=== PATIENT | female | born 1945 | race Caucasian/White ===

== ENCOUNTER 2017-03-21 15:47 | Emergency (ER) | payer OTHER ==
[~2017-03-21] VITALS: Ht 154.9 cm; Wt 59.0 kg
--- NOTE | ~2017-03-21 | EKG ---
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 : 1945 Requested By: Raudel Collado Order Number: [id number] MD: Jatinder Hunter Measurements Intervals [place] Rate: 57 P: 32 NM: 191 QRS: -31 QRSD: 92 T: -20 QT: 414 QTc: 403 Interpretive Statements Sinus bradycardia Inferior infarct, age indeterminate Compared to ECG 01/29/2016 20:12:04 no significant change was found Electronically Signed On 03-22-2017 15:07:59 CDT by Jatinder Hunter [email or web address] <ELECTRONICALLY SIGNED> By: Jatinder Hunter MD, [facility] 03/22/17 1507 [id number] 23 Jatinder Hunter MD, [facility] /EPI
[~2017-03-21 15:47] MED LIST: CALCIUM 500 +1 EAC6 PO; HYCET 7.5 MG-3473 ML PO; HYDROCHLOROTH12.5 M1 PO; LISINOPRIL10 MG PO; PRILOSEC40 MG PO; VITAMIN C500 M1 PO; ZOCOR 10 MG TAB10 MG PO; ZOFRAN ODT4 MG DISSOLVE
[2017-03-21] MEDS ORDERED: LISINOPRIL-HCT1 EACH PO (16:44)
[2017-03-21] MEDS ORDERED: PRED FORTE 1% EY5 M1 OPHTHALMIC (16:46)
[2017-03-21] MEDS ORDERED: KETOROLAC TROMET5 ML OPHTHALMIC (16:46)
[2017-03-21] MEDS ORDERED: TRIMETHOPRIM /P10 M1 OPHTHALMIC (16:47)
[2017-03-21] MEDS ORDERED: CIPROFLOXIN HC2.5 M1 OPHTHALMIC (16:47)
[2017-03-21 17:01] LABS: ABSOLUTE NEUTROPHILS 3.9 thou/uL (1.4-8.2); BASOPHILS 0.4 % (0.0-2.0); EOSINOPHILS 2.3 % (0.0-3.0); HEMATOCRIT 35.4 % (37.0-47.0); HEMOGLOBIN 12.1 gm/dL (12.0-15.0); LYMPHOCYTES 17.6 % (24.0-44.0); MCH 31.9 pg (26.0-34.0); MCHC 34.3 g/dL (28.0-37.0); MONOCYTES 7.3 % (1.0-8.0); PLATELET COUNT 177 thou/uL (150-400); POLYS 72.4 % (36.0-66.0); RBC 3.81 mil/uL (4.20-5.00); RDW 12.8 % (10.5-14.5); WBC 5.4 thou/uL (4.0-11.0)
[2017-03-21 17:04] LABS: MANUAL DIFF NO
[2017-03-21 17:10] LABS: ANION GAP 6 mmol/L (7-16); BUN 24 mg/dL (7-18); CHLORIDE 107 mmol/L (98-107); CO2 28 mmol/L (21-32); CREATININE 0.7 mg/dL (0.6-1.0); GLUCOSE 104 mg/dL (74-106); POTASSIUM 3.9 mmol/L (3.5-5.1); SODIUM 141 mmol/L (136-145)
[2017-03-21 17:19] LABS: TROPONIN-I < 0.04 ng/mL (<0.04-0.07)
[2017-03-21] MEDS ORDERED: NORCO 5-325 TA1 EACH PO (17:40)
== END 2017-03-21 18:00 | disposition home or self-care (01) ==
LOC: ER 15:47
PROVIDERS: Physician Assistant
DX: M75.22 Bicipital tendinitis, left shoulder (principal); I10 Essential (primary) hypertension; E78.00 Pure hypercholesterolemia, unspecified; Z85.43 Personal history of malignant neoplasm of ovary; Z90.710 Acquired absence of both cervix and uterus; Z45.2 Encounter for adjustment and management of vascular access device

== ENCOUNTER → 2017-06-25 | Outpatient (CLI) | payer OTHER ==
[~2017-06-25] MED LIST changes: +CIPROFLOXIN HC2.5 M1 OPHTHALMIC; +KETOROLAC TROMET5 ML OPHTHALMIC; +LISINOPRIL-HCT1 EACH PO; +NORCO 5-325 TA1 EACH PO; +PRED FORTE 1% EY5 M1 OPHTHALMIC; +TRIMETHOPRIM /P10 M1 OPHTHALMIC
== END ==
LOC: RAD 03:06
DX: Z12.31 Encounter for screening mammogram for malignant neoplasm of breast (principal)

== ENCOUNTER 2017-11-06 11:52 | Inpatient (IN) | payer OTHER ==
[~2017-11-06] VITALS: Ht 154.9 cm; Wt 61.2 kg
--- NOTE | ~2017-11-06 | HC ---
[facility] [place] [address] CONSULTATION Name: KWABENA SIMONS Room #: 421-P ADM IN M.R.#: [id number] Admission: 11/06/17 Attend Phys: Leann Chaudhari Discharge: Date of : 41 Report #: [id number] THIS REPORT FOR: //name// CC: Jose Chaudhari DATE OF SERVICE: 11/06/2017 ATTENDING PHYSICIAN: Leann Chaudhari M.D. REASON FOR CONSULTATION: Abdominal pain and diarrhea. HISTORY OF PRESENT ILLNESS: This is a 72-year-old female patient known to our service from previous management of previous management of a large paraesophageal hernia and incarcerated incisional ventral hernia by my practice partner, Dr. Abad Taylor. She has had difficulty with epigastric abdominal pain and multiple episodes of diarrhea around 9:00 this morning. She was seen in the Emergency Room where she underwent a CT of the abdomen and pelvis showing a possible mild diffuse colitis involving the descending and sigmoid colon. The colon proximal to the splenic flexure was mildly dilated. No other acute appearing abnormalities were seen. The patient had an elevated white blood cell count at the time of her admission. I have been asked to see her for further evaluation and treatment. She denies fever or chills. She has had nausea but no emesis. This is her third bout of diarrhea over the past 4-6 weeks. She takes antibiotics chronically, last taken sometime last month for chronic toe infections. She has taken the antibiotics monthly over the past 5 months. She denies bright red blood per rectum. Her most recent colonoscopy was last year, reportedly normal other than some small polyps. PAST MEDICAL HISTORY: Significant for ovarian cancer diagnosed in November 2012 for which she underwent a debulking operation. She also has hemorrhoids. She has also undergone hysterectomy at 30 years old and repair of her type 4 paraesophageal hernia and incarcerated incisional ventral hernia in February 2016. The patient also has a history of hypertension. HOME MEDICATIONS: Include lisinopril/hydrochlorothiazide, Zocor, vitamin C and calcium with vitamin D. ALLERGIES: No known drug allergies. FAMILY HISTORY: Significant for breast cancer in her sister and oropharyngeal cancer in her father. Her mother had what sounds like DCIS. SOCIAL HISTORY: The patient denies use of tobacco, alcohol or illicit drugs. 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 [address] [address] CONSULTATION Name: KWABENA SIMONS Room #: 421-P [facility] [place] ..#: [id number] Admission: 11/06/17 Attend Phys: Leann Chaudhari Discharge: Date of : 41 Report #: [id number] REVIEW OF SYSTEMS: As per history of present illness and in addition: GENERAL: The patient denies fever or chills. Denies unintentional weight loss. HEENT: Denies changes in taste, vision, hearing or smell. RESPIRATORY: Denies shortness of breath, COPD or asthma. CARDIOVASCULAR: Denies chest pain or palpitations. GASTROINTESTINAL: As per history of present illness. Denies bright red blood per rectum. GENITOURINARY: Denies dysuria, urgency, increased urinary frequency or hematuria. MUSCULOSKELETAL: Denies myalgia, arthralgia or arthritis. NEUROLOGICAL: Denies headaches, numbness or tingling. PSYCHIATRIC: Denies depression, anxiety or suicidal ideations. SKIN AND INTEGUMENTARY: Denies any skin lesions, rashes or moles. ENDOCRINE: Denies polydipsia, polyuria or heat or cold intolerance. HEMATOLOGIC: Denies easy bleeding, bruising or anemia. All other review of systems is negative. PHYSICAL EXAMINATION: VITAL SIGNS: Temperature 97.9, blood pressure 121/63, pulse 68, respirations 15, height 5 feet 1 inches and weight 135 pounds. GENERAL: This is a well-developed, well-nourished 72-year-old female patient, in no acute distress. HEENT: Atraumatic and normocephalic with moist mucosal membranes. Oropharynx is clear. She has no scleral icterus. NECK: Supple. No appreciable lymphadenopathy. Trachea is midline. CHEST: Clear bilaterally. No crackles or wheezes. CARDIOVASCULAR: Regular rate and rhythm. ABDOMEN: Soft, but mildly tender to palpation periumbilically favoring the epigastrium. She has no rebound or guarding. No palpable masses. No appreciable hernias. Surgical scars are well healed. GENITOURINARY: Normal external female genitalia. EXTREMITIES: No clubbing, cyanosis or edema. NEUROLOGICAL: Cranial nerves 2 through 12 grossly intact. PSYCHIATRIC: Normal mood and affect. SKIN AND INTEGUMENTARY: No acute inflammatory changes, rashes or lesions are present. LABORATORY DATA: CBC shows a white blood cell count 13.8, hemoglobin 14.4, hematocrit 43.9 and platelets 108 with 75% second segmented neutrophils and 13% bandemia. Electrolytes showed a sodium of 144, potassium 4.0, chloride 108, CO2 27, BUN 21, creatinine 0.9 and glucose 102 with normal liver function tests and a normal lipase. Urinalysis was entirely negative. Lactate was normal at 1.4. After an elevated lactate of 2.6 earlier today. RADIOLOGIC STUDIES: CT of the abdomen and pelvis findings are as noted above. The patient had mild circumferential mural thickening of the descending and [address] [place] [address] CONSULTATION Name: KWABENA SIMONS Room #: 421-P ADM IN M.R.#: [id number] Admission: 11/06/17 Attend Phys: Leann Chaudhari Discharge: Date of : 41 Report #: [id number] sigmoid colon with colonic diverticulosis. The colon proximal to the splenic flexure was mildly dilated and filled with low density fluid. This was felt to represent mild diffuse colitis involving the descending and sigmoid colon, resulting in some degree of partial colonic obstruction. The fluid within the colon was felt to represent diarrhea. There was no evidence for bowel obstruction, free intraperitoneal gas or abnormal extraluminal fluid collections. There was no inflammation in the right lower quadrant. A small lower ventral abdominal hernia was seen with a normal caliber bowel within the defect. On my review of the CT scan, there was dilated bowel near the herniated bowel. IMPRESSION AND PLAN: This is a 72-year-old female patient with a history of ovarian cancer, who has evidence for colitis on CT. She has had difficulty with several bouts of diarrhea and has taken antibiotics relatively recently. We discussed the pathophysiology and natural history of colitis including infectious or inflammatory causes and also discussed the possibility of a partial bowel or colon obstruction. The patient is currently receiving Zosyn. We discussed further workup, potential treatment alternatives, and surgical options as well. We would continue conservative treatment with IV Zosyn and we will add Flagyl. Consider a gastrointestinal consult as well. Should she show more evidence for bowel or colon obstruction, she may require decompression. The patient expressed understanding of the plan. We will follow along with serial abdominal exams as well as labs and x-rays as necessary. I sincerely appreciate the opportunity to participate in the care of this patient and we will leave further recommendations and orders in the electronic medical record as appropriate. <ELECTRONICALLY SIGNED> By: Cm Hedrick MD, FACS 11/07/17 0831 [id number] Cm Hedrick MD, FACS /nt
[2017-11-06 11:53] VITALS: BP 95/54
[2017-11-06 12:29] LABS: HEMATOCRIT 43.9 % (37.0-47.0); HEMOGLOBIN 14.4 gm/dL (12.0-15.0); MANUAL DIFF YES; MCH 31.5 pg (26.0-34.0); MCHC 32.7 g/dL (28.0-37.0); MCV 96.4 fL (80.0-100.0); PLATELET COUNT 108 thou/uL (150-400); RBC 4.56 mil/uL (4.20-5.00); RDW 13.1 % (10.5-14.5); WBC 13.8 thou/uL (4.0-11.0)
[2017-11-06 13:02] LABS: ABSOLUTE NEUTROPHILS 12.1 thou/uL (1.4-8.2); TOTAL CELL COUNT 100
[2017-11-06 13:45] LABS: CALCIUM 9.4 mg/dL (8.5-10.1); CREATININE 0.9 mg/dL (0.6-1.0)
[2017-11-06 13:51] LABS: ALBUMIN 4.1 g/dL (3.4-5.0); DIRECT BILIRUBIN 0.2 mg/dL (<0.1-0.3); TOTAL BILIRUBIN 0.7 mg/dL (<0.1-1.0); TOTAL PROTEIN 6.9 g/dL (6.4-8.2)
[2017-11-06 14:28] LABS: URINE BILIRUBIN NEGATIVE (Negative); URINE BLOOD NEGATIVE (Negative); URINE COLOR YELLOW; URINE GLUCOSE-RANDOM* NEGATIVE (Negative); URINE KETONES NEGATIVE (Negative); URINE NITRITE NEGATIVE (Negative); URINE PROTEIN (DIPSTICK) NEGATIVE (Negative); URINE UROBILINOGEN 0.2 E.U./dl (0.2-1.0)
[2017-11-06 15:25] VITALS: BP 121/63
[2017-11-06 18:35] VITALS: BP 88/59
[2017-11-06 19:17] VITALS: BP 85/51
[2017-11-07 00:26] VITALS: BP 89/43
[2017-11-07 03:24] VITALS: BP 111/49
[2017-11-07 06:41] LABS: HEMATOCRIT 30.9 % (37.0-47.0); MCH 32.1 pg (26.0-34.0); MCHC 33.8 g/dL (28.0-37.0); MCV 94.8 fL (80.0-100.0); RBC 3.26 mil/uL (4.20-5.00); WBC 3.4 thou/uL (4.0-11.0)
[2017-11-07 06:46] LABS: HEMOGLOBIN 10.5 gm/dL (12.0-15.0)
[2017-11-07 06:48] LABS: CALCIUM 8.4 mg/dL (8.5-10.1); CREATININE 0.6 mg/dL (0.6-1.0); POTASSIUM 3.7 mmol/L (3.5-5.1)
[2017-11-07 06:54] LABS: ALBUMIN 2.7 g/dL (3.4-5.0); MAGNESIUM 1.8 mg/dL (1.8-2.4); TOTAL BILIRUBIN 0.7 mg/dL (<0.1-1.0)
[2017-11-07 07:30] VITALS: BP 118/55
[2017-11-07 15:20] VITALS: BP 133/73
[2017-11-07 19:21] VITALS: BP 127/59
[2017-11-07 23:44] VITALS: BP 122/66
[2017-11-08 03:17] VITALS: BP 111/72
[2017-11-08 08:25] VITALS: BP 155/66
[2017-11-08] MEDS ORDERED: FLAGYL500 MG PO (09:31)
[2017-11-08 11:06] VITALS: BP 155/66
[2017-11-08 12:36] VITALS: BP 155/66
== END 2017-11-08 12:25 | disposition home or self-care (01) | DRG 871 ==
LOC: ER 11:52 → EROBS 14:50 → 4E 14:50
PROVIDERS: Emergency Medicine; Hospitalist
DX: A41.9 Sepsis, unspecified organism (principal); E43 Unspecified severe protein-calorie malnutrition; K52.9 Noninfective gastroenteritis and colitis, unspecified; I10 Essential (primary) hypertension; E86.9 Volume depletion, unspecified; I95.9 Hypotension, unspecified; D72.825 Bandemia; E78.00 Pure hypercholesterolemia, unspecified; Z85.43 Personal history of malignant neoplasm of ovary; Z87.442 Personal history of urinary calculi; Z90.710 Acquired absence of both cervix and uterus; Z79.899 Other long term (current) drug therapy; Z80.8 Family history of malignant neoplasm of other organs or systems; Z80.3 Family history of malignant neoplasm of breast
CPT/HCPCS: 10183

== ENCOUNTER 2018-10-04 18:17 | Emergency (ER) | payer OTHER ==
[~2018-10-04] VITALS: Ht 154.9 cm; Wt 62.6 kg
[~2018-10-04 18:17] MED LIST changes: +FLAGYL500 MG PO
[2018-10-04 19:13] LABS: ABSOLUTE NEUTROPHILS 9.8 thou/uL (1.4-8.2); BASOPHILS 0.2 % (0.0-2.0); EOSINOPHILS 0.4 % (0.0-3.0); HEMOGLOBIN 12.2 gm/dL (12.0-15.0); LYMPHOCYTES 6.1 % (24.0-44.0); MCH 32.1 pg (26.0-34.0); MCHC 33.9 g/dL (28.0-37.0); MCV 94.6 fL (80.0-100.0); MONOCYTES 8.5 % (1.0-8.0); PLATELET COUNT 188 thou/uL (150-400); POLYS 84.8 % (36.0-66.0); RDW 12.8 % (10.5-14.5); WBC 11.5 thou/uL (4.0-11.0)
[2018-10-04 19:21] LABS: CALCIUM 9.2 mg/dL (8.5-10.1); CREATININE 0.7 mg/dL (0.6-1.0); POTASSIUM 3.7 mmol/L (3.5-5.1)
[2018-10-04 19:27] LABS: ALBUMIN 3.5 g/dL (3.4-5.0); DIRECT BILIRUBIN 0.1 mg/dL (<0.1-0.3); TOTAL BILIRUBIN 0.6 mg/dL (<0.1-1.0); TOTAL PROTEIN 6.9 g/dL (6.4-8.2)
[2018-10-04 20:04] LABS: URINE BILIRUBIN NEGATIVE (Negative); URINE BLOOD TRACE (Negative); URINE CLARITY CLEAR; URINE COLOR YELLOW; URINE GLUCOSE-RANDOM* NEGATIVE (Negative); URINE KETONES NEGATIVE (Negative); URINE LEUKOCYTES-REFLEX NEGATIVE (Negative); URINE NITRITE-REFLEX NEGATIVE (Negative); URINE PROTEIN (DIPSTICK) NEGATIVE (Negative); URINE UROBILINOGEN 0.2 E.U./dl (0.2-1.0)
[2018-10-04] MEDS ORDERED: CIPROFLOXACIN500 M1 PO (20:49)
[2018-10-04] MEDS ORDERED: FLAGYL500 MG PO (20:49)
[2018-10-04 21:06] VITALS: BP 134/86
== END 2018-10-04 21:09 | disposition home or self-care (01) ==
LOC: ER 18:17
PROVIDERS: Emergency Medicine
DX: K57.92 Diverticulitis of intestine, part unspecified, without perforation or abscess without bleeding (principal); I10 Essential (primary) hypertension; E78.00 Pure hypercholesterolemia, unspecified; Z90.710 Acquired absence of both cervix and uterus; Z87.442 Personal history of urinary calculi; Z85.43 Personal history of malignant neoplasm of ovary

== ENCOUNTER → 2019-07-11 | Outpatient (CLI) | payer OTHER ==
[~2019-07-11] MED LIST changes: +CIPROFLOXACIN500 M1 PO
== END ==
LOC: RAD 01:32
DX: Z12.31 Encounter for screening mammogram for malignant neoplasm of breast (principal)

== ENCOUNTER → 2020-07-12 | Outpatient (CLI) | payer OTHER | LOC: BC 13:50 | PROVIDERS: ATTEND Internal Medicine | DX: Z12.31 Encounter for screening mammogram for malignant neoplasm of breast (principal) ==

== ENCOUNTER → 2021-07-17 | Outpatient (CLI) | payer OTHER | LOC: BC 15:20 | PROVIDERS: ATTEND Internal Medicine | DX: Z12.31 Encounter for screening mammogram for malignant neoplasm of breast (principal); N64.89 Other specified disorders of breast ==

== ENCOUNTER 2021-10-18 12:55 | Emergency (ER) | payer OTHER ==
[~2021-10-18] VITALS: Ht 154.9 cm; Wt 63.5 kg
[2021-10-18] MEDS ORDERED: LIPITOR 40 MG T40 M1 PO (14:33)
[2021-10-18] MEDS ORDERED: ELIQUIS5 MG PO (14:34)
[2021-10-18] MEDS ORDERED: CARVEDILOL6.25 M1 PO (14:34)
[2021-10-18] MEDS ORDERED: MEDROLDOSEPACK PO (17:25)
[2021-10-18] MEDS ORDERED: METHOCARBAMOL500 M2 PO (17:25)
[2021-10-18] MEDS ORDERED: NORCO5 PO (17:25)
[2021-10-18 17:49] VITALS: BP 113/78
== END 2021-10-18 17:51 | disposition home or self-care (01) ==
LOC: ER 12:55
DX: M54.50 Low back pain, unspecified (principal); I10 Essential (primary) hypertension; E78.00 Pure hypercholesterolemia, unspecified; Z90.710 Acquired absence of both cervix and uterus; Z79.899 Other long term (current) drug therapy

== ENCOUNTER → 2021-11-07 | Outpatient (CLI) | payer OTHER ==
[~2021-11-07] MED LIST changes: +CARVEDILOL6.25 M1 PO; +ELIQUIS5 MG PO; +LIPITOR 40 MG T40 M1 PO; +LIPITOR40 MG PO; +MEDROLDOSEPACK PO; +METHOCARBAMOL500 M2 PO; +NORCO 5-325 TA1 EAC1 PO; +NORCO5 PO; +VALIUM2 MG PO; +ZESTRIL2.5 MG PO
== END ==
LOC: MRI 09:18
PROVIDERS: ATTEND Physician Assistant
DX: M47.816 Spondylosis without myelopathy or radiculopathy, lumbar region (principal); M48.061 Spinal stenosis, lumbar region without neurogenic claudication; M54.50 Low back pain, unspecified

== ENCOUNTER → 2021-11-15 | Outpatient (CLI) | payer OTHER ==
[~2021-11-15] VITALS: Ht 154.9 cm; Wt 63.5 kg
[~2021-11-15] MED LIST changes: +ELIQUIS2.5 MG PO; +TRAMADOL 50 MG50 MG PO; +VOLTAREN ARTHRI20 GM TOP
[2021-11-15 12:57] VITALS: BP 156/85
--- NOTE | 2021-11-15 13:14 | NUR ---
Pain Clinic Assessment: 1. History of Osteoarthritis: HANDS History of Rheumatoid Arthritis: Not Applicable 2. Height: 5 ft. 1 in. 154.9 cm. Weight: 140.0 lb. oz. 63.504 kg. Patient's BMI: 26.5 3. Vital Signs: BP: 156/85 Pulse: 55 Resp: 14 Temp: 02 Sat: 97 ECG Mon: 4. Pain Intensity: 6 5. Fall Risk: Dizziness: N Needs help standing or walking: N Fallen in the last 3 months: N Fall risk comments: 6. Patient on Blood Thinner: None 7. History of Hypertension: Y 8. Opioid Therapy greater than 6 weeks: N Opiate Contract Signed: 9. Risk Assessment Tool Provided: 10. Functional Assessment Tool: LOW 11. Recreational Drug Use: Never Drug Type: Tobacco Use: Never Smoker Tobacco Type: Amount or Packs/day: How Many Years: Alcohol Use: No Frequency: Quant:
== END ==
LOC: PAIN 09:13
PROVIDERS: ATTEND Anesthesiology Pain Medicine
DX: C56.9 Malignant neoplasm of unspecified ovary (principal); M79.18 Myalgia, other site; M54.50 Low back pain, unspecified; I10 Essential (primary) hypertension; N20.0 Calculus of kidney; E78.00 Pure hypercholesterolemia, unspecified; K44.9 Diaphragmatic hernia without obstruction or gangrene; R55 Syncope and collapse; M75.20 Bicipital tendinitis, unspecified shoulder; K52.9 Noninfective gastroenteritis and colitis, unspecified; Z79.891 Long term (current) use of opiate analgesic; Z79.899 Other long term (current) drug therapy

== ENCOUNTER → 2021-12-04 | Outpatient (CLI) | payer OTHER ==
[~2021-12-04] VITALS: Ht 154.9 cm; Wt 65.9 kg
[2021-12-04 10:20] VITALS: BP 158/82
--- NOTE | 2021-12-04 10:29 | NUR ---
Pain Clinic Assessment: 1. History of Osteoarthritis: HANDS History of Rheumatoid Arthritis: Not Applicable 2. Height: 5 ft. 1 in. 154.9 cm. Weight: 145.2 lb. oz. 65.862 kg. Patient's BMI: 27.4 3. Vital Signs: BP: 158/82 Pulse: 52 Resp: 14 Temp: 02 Sat: 98 ECG Mon: 4. Pain Intensity: 6 5. Fall Risk: Dizziness: N Needs help standing or walking: N Fallen in the last 3 months: N Fall risk comments: 6. Patient on Blood Thinner: eliquis 7. History of Hypertension: Y 8. Opioid Therapy greater than 6 weeks: N Opiate Contract Signed: 9. Risk Assessment Tool Provided: 10. Functional Assessment Tool: LOW 11. Recreational Drug Use: Never Drug Type: Tobacco Use: Never Smoker Tobacco Type: Amount or Packs/day: How Many Years: Alcohol Use: No Frequency: Quant:
== END | disposition home or self-care (01) ==
LOC: PAIN 11-27 08:13
PROVIDERS: ATTEND Anesthesiology Pain Medicine
DX: M79.18 Myalgia, other site (principal); M70.62 Trochanteric bursitis, left hip; E78.00 Pure hypercholesterolemia, unspecified; I10 Essential (primary) hypertension; I48.91 Unspecified atrial fibrillation; M19.90 Unspecified osteoarthritis, unspecified site; Z98.890 Other specified postprocedural states; Z79.899 Other long term (current) drug therapy; Z85.43 Personal history of malignant neoplasm of ovary; Z87.442 Personal history of urinary calculi; Z79.01 Long term (current) use of anticoagulants